=== PATIENT | female | born 1980 | race Two or more races ===

== ENCOUNTER 2018-02-21 13:30 | Emergency (ER) | payer MEDICAID, OTHER ==
[~2018-02-21] VITALS: Ht 162.6 cm; Wt 99.8 kg
[2018-02-21 13:45] VITALS: BP 128/58
[2018-02-21 14:30] LABS: Urine Bacteria FEW /hpf (None Seen); Urine Blood Negative /uL (Negative); Urine Mucus FEW (None Seen); Urine Specific Gravity 1.031 (1.001-1.035); Urine WBC 176 /hpf (0 - 5)
[2018-02-21 14:59] LABS: Eosinophils # (auto) 0.1 uL; Eosinophils % (auto) 1.2 % (0.0-7.0); Hematocrit 31.2 % (36.0-46.0); Hemoglobin 9.9 g/dL (12.2-16.2); Mean Corpuscular Hemoglobin 23.6 pg (28.0-32.0); Mean Corpuscular Hgb Conc. 31.7 g/dL (32.0-36.0); Mean Corpuscular Volume 74.4 fL (80.0-100.0); Red Blood Cells 4.19 10^6/uL (4.0-5.20)
[2018-02-21 15:01] LABS: Basophils # (auto) 0.1 uL; Basophils % (auto) 1.2 % (0.0-2.0); Lymphocytes # (auto) 1.8 uL; Lymphocytes % (auto) 20.1 % (10.0-50.0); Monocytes # (auto) 0.8 uL; Monocytes % (auto) 9.1 % (0.0-12.0); Neutrophils % (auto) 68.4 % (37.0-80.0); Platelet Count (auto) 514 10^3/uL (140-450); Red Cell Distribution Width 19.4 % (11.8-14.3); White Blood Cell 8.8 10^3/uL (4.4-10.8)
[2018-02-21 15:09] LABS: Albumin 3.2 g/dL (3.4-5.0); Anion Gap 6 (5-15); BUN/Creatinine Ratio 29.1; Blood Urea Nitrogen 16 mg/dL (7-18); Calcium 8.4 mg/dL (8.5-10.1); Carbon Dioxide 26 mmol/L (21-32); Chloride 106 mmol/L (98-107); GFR African American 159 mL/min; GFR Non-African American 131 mL/min; Glucose 94 mg/dL (74-106); Potassium 4.4 mmol/L (3.5-5.1); Sodium 138 mmol/L (136-145)
[2018-02-21 15:14] LABS: Alanine Aminotransferase 15 U/L (13-56); Alkaline Phosphatase 88 U/L (45-117); Aspartate Aminotransferase 11 U/L (15-37); Bilirubin, Total 0.7 mg/dL (0.2-1.0); Total Protein 7.9 g/dL (6.4-8.2)
[2018-02-21] MEDS: cefTRIAXone 1GM/50ML D5W 50 ML IV ONE (21:30)
[2018-02-21] MEDS: MECLIZINE HCL 25 MG TAB PO ONE (21:45)
== END 2018-02-21 23:02 | disposition home or self-care (01) ==
LOC: ER 13:33
DX: R42 Dizziness and giddiness (principal); R53.1 Weakness; N39.0 Urinary tract infection, site not specified; R11.0 Nausea
CPT/HCPCS: 36415; 80053; 81001; 84484; 84702; 85025; 93005